=== PATIENT | female | born 1965 | race American Indian/Alaskan Native ===

== ENCOUNTER 2018-05-20 15:18 | Emergency (ER) | payer MEDICAID ==
--- NOTE | 2018-05-20 15:57 | ED PDOC ---
Arrival/HPI - General Chief Complaint: Back Pain Time Seen by Provider: 05/20/18 15:21 Historian: Patient - History of Present Illness Narrative History of Present Illness (Text): 05/20/18 15:52 52yo female with pmhx of Asthma and hypertension who present with complaint of left sided lower back pain that radiates posteriorly to her left lower leg since this morning. states her job involves lifting, but her pain started this morning. Describes pain as "spasm". States pain is when she tries to sit up or flex. She did not take any medication for the pain. She denies trauma, abdominal pain, urinary symptoms, focal weakness, saddle anesthesia, urinary/ fecal incontinence, fever, chills, any other complaint. Past Medical History - Provider Review Nursing Documentation Reviewed: Yes - Cardiac Hx Hypertension: Yes - Pulmonary Hx Respiratory Disorders: No - Neurological Hx Migraine: Yes - HEENT Hx HEENT Disorder: No - Renal Hx Renal Disorder: No - Endocrine/Metabolic Hx Endocrine Disorders: No - Hematological/Oncological Hx Blood Disorders: No - Integumentary Hx Dermatological Disorder: No - Musculoskeletal/Rheumatological Hx Musculoskeletal Disorders: No - Gastrointestinal Hx Gastrointestinal Disorders: No - Genitourinary/Gynecological Hx Genitourinary Disorders: No - Psychiatric Hx Psychophysiologic Disorder: No Hx Substance Use: No - Surgical History Hx Orthopedic Surgery: Yes Other/Comment: foot surgery b/l for bone spurs - Anesthesia Hx Anesthesia: Yes Hx Anesthesia Reactions: No Family/Social History - Physician Review Nursing Documentation Reviewed: Yes Family/Social History: Unknown Family HX Smoking Status: Never Smoked Hx Alcohol Use: Yes Hx Substance Use: No Allergies/Home Meds Allergies/Adverse Reactions: Allergies No Known Allergies Allergy (Verified 05/20/18 16:35) Home Medications: Home Meds Medication Instructions Recorded Confirmed Amlodipine Besylate/Benazepril 1 tab PO DAILY 03/01/16 03/01/16 [Amlodipine-Benazepril 5-10 mg] Azithromycin [Zithromax] 250 mg PO DAILY 03/01/16 03/01/16 Cholecalciferol (Vitamin D3) 1 tab PO DAILY 03/01/16 03/01/16 [Vitamin D3] SUMAtriptan succinate [Imitrex Tab] 100 mg PO DAILY PRN 03/01/16 03/01/16 Review of Systems - Physician Review All systems were reviewed & negative as marked: Yes - Review of Systems Constitutional: Normal Eyes: Normal ENT: Normal Respiratory: Normal Cardiovascular: Normal Gastrointestinal: Normal Genitourinary Female: Normal Musculoskeletal: Back Pain Skin: Normal Neurological: Normal Endocrine: Normal Hemo/Lymphatic: Normal Psychiatric: Normal Physical Exam Vital Signs Reviewed: Yes Vital Signs Temp Pulse Resp BP Pulse Ox 05/20/18 18:26 98.2 F 78 16 119/76 100 05/20/18 17:57 98.7 F 78 18 119/76 100 Temperature: Afebrile Blood Pressure: Normal Pulse: Regular Respiratory Rate: Normal Appearance: Positive for: Well-Appearing, Non-Toxic, Comfortable Pain Distress: None Mental Status: Positive for: Alert and Oriented X 3 - Systems Exam Head: Present: Atraumatic, Normocephalic Pupils: Present: PERRL Extroacular Muscles: Present: EOMI Conjunctiva: Present: Normal Mouth: Present: Moist Mucous Membranes Neck: Present: Normal Range of Motion Respiratory/Chest: Present: Clear to Auscultation, Good Air Exchange. No: Respiratory Distress, Accessory Muscle Use Cardiovascular: Present: Regular Rate and Rhythm, Normal S1, S2. No: Murmurs Abdomen: No: Tenderness, Distention, Peritoneal Signs Back: Present: Paraspinal Tenderness (Left paraspinous tenderness), Pain with Leg Raise (LEft leg). No: Midline Tenderness Upper Extremity: Present: Normal Inspection. No: Cyanosis, Edema Lower Extremity: Present: Normal Inspection. No: Edema Neurological: Present: GCS=15, CN II-XII Intact, Speech Normal Skin: Present: Warm, Dry, Normal Color. No: Rashes Psychiatric: Present: Alert, Oriented x 3, Normal Insight, Normal Concentration Medical Decision Making ED Course and Treatment: 05/20/18 18:23 52yo female presented with left sided lower back pain that radiates to her lower leg She was medicated and on reevaluation reports improvement of her pain. She was ambulatory and neurologically intact LS - No acute finding Result was DW the pt. she was DC home with Naprosyn and flexeril for MS pain. Advised to apply warm compress/shower and rest Referred to her PMD. TRT ED for any new or worsening symptoms. - Lab Interpretations Lab Results: Lab Results 05/20/18 16:07: Urine Color Yellow, Urine Appearance Clear, Urine pH 6.0, Ur Specific [place] 1.025, Urine Protein Trace H, Urine Glucose (UA) Negative, Urine Ketones Negative, Urine Blood Trace-intact H, Urine Nitrate Negative, Urine Bilirubin Negative, Urine Urobilinogen 0.2, Ur Leukocyte Esterase Negative , Urine RBC 10 - 15, Urine WBC 2 - 5, Ur Epithelial Cells 6 - 8 - RAD Interpretation Radiology Orders: 05/20/18 15:51 LS SPINE WITH OBL > 18 YRS OLD [RAD] Stat - Medication Orders Current Medication Orders: Discontinued Medications Cyclobenzaprine HCl (Flexeril) 10 mg PO STAT STA Stop: 05/20/18 15:52 Last Admin: 05/20/18 17:14 Dose: 10 mg Ketorolac Tromethamine (Toradol) 60 mg IM STAT STA Stop: 05/20/18 15:52 Last Admin: 05/20/18 17:14 Dose: 60 mg MAR Pain Assessment Document 05/20/18 17:14 (Rec: 05/20/18 17:15 [email or web address] Pain Reassessment Is this a pain reassessment? No Sleep Is patient sleeping during reassessment? No Presence of Pain Presence of Pain Yes IM Administration Charges Document 05/20/18 17:14 (Rec: 05/20/18 17:15 [email or web address]) Charges for Administration # of IM Administrations 1 Disposition/Present on Arrival - Present on Arrival Any Indicators Present on Arrival: No History of DVT/PE: No History of Uncontrolled Diabetes: No Urinary Catheter: No History of Decub. Ulcer: No History Surgical Site Infection Following: None - Disposition Have Diagnosis and Disposition been Completed?: Yes Diagnosis: Back pain Disposition: HOME/ ROUTINE Disposition Time: 18:40 Patient Plan: Discharge Condition: STABLE Discharge Instructions (ExitCare): Low Back Pain in Adults Additional Instructions: Follow up with your Doctor Apply warm compress/shower to area Return to ED for any new or worsening symptoms Prescriptions: Cyclobenzaprine [Cyclobenzaprine HCl] 10 mg PO TID #12 tab Naproxen [Naprosyn] 500 mg PO BID #20 tablet Referrals: Sussy Houston MD [Medical Doctor] - Follow up with primary Valdo Chambers MD [Staff Provider] - Follow up with primary [facility] [Outside] - Follow up with primary Forms: [employer] (Chinese), WORK NOTE
[2018-05-20 15:59] VITALS: BMI 23.9
[2018-05-20 16:26] LABS: URINE BILIRUBIN NEGATIVE (NEGATIVE); URINE BLOOD TRACE-INTACT (NEGATIVE); URINE GLUCOSE (UA) NEGATIVE (NEGATIVE); URINE LEUKOCYTE ESTERASE NEGATIVE Leu/uL (NEGATIVE); URINE PROTEIN TRACE mg/dL (<30 mg/dL); URINE UROBILINOGEN 0.2 E.U./dL (<1 E.U./dL)
[2018-05-20 16:33] LABS: URINE APPEARANCE CLEAR (CLEAR); URINE COLOR YELLOW (YELLOW)
--- NOTE | 2018-05-20 17:39 | RAD ---
Date of service: 05/20/2018 PROCEDURE: Radiographs of the Lumbar Spine. HISTORY: back pain COMPARISON: No prior. FINDINGS: BONES: Normal alignment. No listhesis. No fracture. DISC SPACES: Unremarkable. OTHER FINDINGS: Umbilical ornamentation. IMPRESSION: Unremarkable radiographs of the lumbar spine.
[2018-05-20 17:58] VITALS: BP 119/76; PULSE 78; O2SAT 100
[2018-05-20 18:28] VITALS: RESP 16; TEMP 98.2
--- NOTE | 2018-05-21 09:38 | CARD ---
APPROVED REPORT Date of service: 05/20/2018 EKG Measurement Heart [id number] <Conclusion> Normal sinus rhythm Normal ECG
== END 2018-05-20 18:10 | disposition home or self-care (01) ==
LOC: ED 15:18
DX: M54.5 Low back pain (principal); I10 Essential (primary) hypertension
CPT/HCPCS: 72110; 81001; 93005; 96372; 99283; J1885

== ENCOUNTER 2018-08-21 03:51 | Emergency (ER) | payer MEDICAID ==
[2018-08-21 04:04] VITALS: BMI 23.9
[2018-08-21 04:10] VITALS: RESP 18; TEMP 98.1; O2SAT 99
--- NOTE | 2018-08-21 04:19 | ED PDOC ---
Arrival/HPI - General Chief Complaint: Trauma Time Seen by Provider: 08/21/18 03:54 - History of Present Illness Narrative History of Present Illness (Text): 52 y/o F c PMHx HTN, migraine headaches p/w head injury earlier today. States a metal door fixture struck her in the forehead. She reports feeling dazed initially but denies any LOC, nausea, vomiting, confusion, numbness, motor weakness. Did not take any pain medication prior to arrival. Past Medical History - Reproductive Menopause: Yes - Cardiac Hx Cardiac Disorders: Yes Hx Hypertension: Yes - Pulmonary Hx Respiratory Disorders: No - Neurological Hx Migraine: Yes - HEENT Hx HEENT Disorder: No - Renal Hx Renal Disorder: No - Endocrine/Metabolic Hx Endocrine Disorders: No - Hematological/Oncological Hx Blood Disorders: No - Integumentary Hx Dermatological Disorder: No - Musculoskeletal/Rheumatological Hx Musculoskeletal Disorders: No - Gastrointestinal Hx Gastrointestinal Disorders: No - Genitourinary/Gynecological Hx Genitourinary Disorders: No - Psychiatric Hx Psychophysiologic Disorder: No Hx Substance Use: No - Surgical History Other/Comment: foot surgery - Anesthesia Hx Anesthesia: No Family/Social History Family/Social History: No Known Family HX Smoking Status: Never Smoked Hx Alcohol Use: Yes Frequency of alcohol use: Socially Hx Substance Use: No Allergies/Home Meds Allergies/Adverse Reactions: Allergies No Known Allergies Allergy (Verified 08/21/18 04:14) Home Medications: Home Meds Medication Instructions Recorded Confirmed Amlodipine Besylate/Benazepril 1 tab PO DAILY 03/01/16 08/21/18 [Amlodipine-Benazepril 5-10 mg] SUMAtriptan succinate [Imitrex Tab] 100 mg PO DAILY PRN 03/01/16 08/21/18 Review of Systems - Physician Review All systems were reviewed & negative as marked: Yes - Review of Systems Eyes: absent: Vision Changes Gastrointestinal: absent: Vomiting Physical Exam - Physical Exam Narrative Physical Exam (Text): Gen: NAD Head: NC/AT. No hematoma. No laceration. Eyes: PERRL. EOMI ENT: MMM Neck: FROM CV: Regular rate Resp: No accessory muscle use Skin: No ecchymosis. No laceration Neuro: Alert, oriented x 3. No numbness. Motor 5/5 x 4. CN II to XII intact. Vital Signs Temp Pulse Resp BP Pulse Ox 08/21/18 04:09 98.1 F 90 18 130/60 99 Medical Decision Making ED Course and Treatment: Acetaminophen administered. Discussed unlikelihood of ICH and CT imaging not indicated at this time. Patient agreeable. Discharged home, f/u PMD, return to ED immediately for any vomiting, confusion, vision change, numbness, weakness, or any other problem. Disposition/Present on Arrival - Present on Arrival Any Indicators Present on Arrival: No History of DVT/PE: No History of Uncontrolled Diabetes: No Urinary Catheter: No History of Decub. Ulcer: No History Surgical Site Infection Following: None - Disposition Have Diagnosis and Disposition been Completed?: Yes Diagnosis: Head injury Disposition: HOME/ ROUTINE Disposition Time: 04:19 Patient Plan: Discharge Condition: STABLE Discharge Instructions (ExitCare): Minor Head Injury (DC) Forms: [employer] (Greek), WORK NOTE
[2018-08-21 04:36] VITALS: BP 128/60; PULSE 89
== END 2018-08-21 04:51 | disposition home or self-care (01) ==
LOC: ED 03:51
DX: S09.90XA Unspecified injury of head, initial encounter (principal); W22.8XXA Striking against or struck by other objects, initial encounter